=== PATIENT | female | born 1940 | race Caucasian/White ===

== ENCOUNTER 2016-06-18 10:31 | Inpatient (IN) | payer MEDICARE, OTHER ==
[~2016-06-18 10:31] MED LIST: CYCLOBENZAPRINE10 M1 PO; HYDROCODON-ACE1 EA16 PO; LISINOPRIL20 M1 PO; MECLIZINE HCL25 M3 PO; NAPROSYN500 M1 PO; NORCO 7.5-3251 EACH PO; PREDNISOLONE ACE5 M1 OP; PROMETHAZINE HC25 M3 PO; SENNA PLUS TAB1 EAC1 PO; VALIUM2 M1 PO; [UNRECOGNIZED DRUG - OTHER] PO
[2016-06-19 07:22] LABS: HGB-HEMOGLOBIN 11.6 gm/dl (12.0-15.5); PLATELET COUNT 340 tho/cmm (150-450)
== END 2016-06-19 13:56 | DRG 327 ==
LOC: SHSC 10:31 → ORW 13:23 → PACU 16:02 → BURN 17:17
PROVIDERS: ADMIT Surgery
PROC: 0BQS4ZZ (ICD-10-PCS; principal; 2016-06-18)
PROC: 0BQR4ZZ (ICD-10-PCS; 2016-06-18)
PROC: 0DV44ZZ Restriction of Esophagogastric Junction, Percutaneous Endoscopic Approach (ICD-10-PCS; 2016-06-18)
PROC: 0DS64ZZ Reposition Stomach, Percutaneous Endoscopic Approach (ICD-10-PCS; 2016-06-18)
PROC: 0DN44ZZ Release Esophagogastric Junction, Percutaneous Endoscopic Approach (ICD-10-PCS; 2016-06-18)
DX: K21.9 Gastro-esophageal reflux disease without esophagitis (principal); K44.0 Diaphragmatic hernia with obstruction, without gangrene; K66.0 Peritoneal adhesions (postprocedural) (postinfection)
CPT/HCPCS: C9113; J0690; J1170; J1650; J1885; J2250; J2270; J2405; J2765; J3010; J7030